=== PATIENT | female | born 1930 | race Caucasian/White ===

== ENCOUNTER 2017-02-17 09:40 | Emergency (ER) | payer MEDICARE, BC ==
[~2017-02-17] VITALS: Ht 167.6 cm; Wt 61.7 kg
[2017-02-17] MEDS ORDERED: LACTULOSE 20Gm/30ML SOLN PO ONE (10:30)
[2017-02-17] MEDS ORDERED: ACETAMINOPHEN 325 MG TAB PO ONE (11:00)
[2017-02-17] MEDS: FLEET ENEMA(ADULT) 135 ML PR ONE ×2 (11:35→12:12)
[2017-02-17 13:35] VITALS: BP 133/72
== END 2017-02-17 14:10 | disposition home or self-care (01) ==
LOC: ER 09:40
DX: K59.00 Constipation, unspecified (principal); K64.4 Residual hemorrhoidal skin tags; I10 Essential (primary) hypertension; Z88.6 Allergy status to analgesic agent; Z88.8 Allergy status to other drugs, medicaments and biological substances
CPT/HCPCS: 74000